=== PATIENT | male | born 1935 | race Caucasian/White ===

== ENCOUNTER 2019-11-24 10:48 | Observation (INO) | payer OTHER ==
[~2019-11-24] VITALS: Ht 172.7 cm; Wt 98.0 kg
[2019-11-24 10:57] VITALS: BP 163/87
[2019-11-24] MEDS ORDERED: ZYTIGA250 MG PO (11:30)
[2019-11-24] MEDS ORDERED: HYDROCHLOROTHIA25 M2 PO (11:31)
[2019-11-24] MEDS ORDERED: ENALAPRIL MALEA20 MG PO (11:31)
[2019-11-24] MEDS ORDERED: NOXIFOL-D32500 UNIT PO (11:31)
[2019-11-24] MEDS ORDERED: FLOMAX0.4 MG PO (11:32)
[2019-11-24] MEDS ORDERED: PREDNISOLONE 5 M5 M1 PO (11:32)
[2019-11-24] MEDS ORDERED: ASPIR 8181 M1 PO (11:33)
[2019-11-24] MEDS ORDERED: SIMVASTATIN80 MG PO (11:33)
[2019-11-24] MEDS ORDERED: LUPRON DEPOT-PE30 MG IM (11:34)
[2019-11-24 11:39] LABS: HEMATOCRIT 37.6 % (42.0-52.0); HEMOGLOBIN 13.3 gm/dL (14.0-18.0); MCH 33.8 pg (26.0-34.0); MCHC 35.4 g/dL (28.0-37.0); MCV 95.4 fL (80.0-100.0); MPV 6.2 fl. (7.2-11.1); NUCLEATED RBCS 0 /100WBC; PLATELET COUNT* 235 thou/uL (150-400); RBC 3.94 mil/uL (4.50-6.00); RDW-CV 14.8 % (10.5-14.5); WBC 7.6 thou/uL (4.0-11.0)
[2019-11-24 11:43] LABS: CALCIUM 9.4 mg/dL (8.5-10.1); CREATININE 1.5 mg/dL (0.6-1.3); POTASSIUM 3.9 mmol/L (3.5-5.1)
[2019-11-24 11:47] LABS: ALBUMIN 3.7 g/dL (3.4-5.0); TOTAL BILIRUBIN 1.2 mg/dL (<0.1-1.0); TOTAL PROTEIN 7.2 g/dL (6.4-8.2)
[2019-11-24 12:25] LABS: ABSOLUTE BASOPHILS 0.1 thou/uL (0.0-0.2); ABSOLUTE EOSINOPHILS 0.1 thou/uL (0.0-0.7); ABSOLUTE LYMPHOCYTES 2.8 thou/uL (0.8-5.3); ABSOLUTE MONOCYTES 0.1 thou/uL (0.0-1.2); ABSOLUTE NEUTROPHILS 4.6 thou/uL (1.6-8.1); METAMYELOCYTES 9 %; PLATELET ESTIMATE ADEQUATE
[2019-11-24 13:03] LABS: PROTIME 10.2 Seconds (9.20-11.50)
[2019-11-24 17:20] VITALS: BP 163/87
[2019-11-24 20:30] VITALS: BP 111/58
[2019-11-25] VITALS: BP 111/53
[2019-11-25 05:02] LABS: CALCIUM 8.5 mg/dL (8.5-10.1); CREATININE 1.7 mg/dL (0.6-1.3); MAGNESIUM 1.8 mg/dL (1.8-2.4); POTASSIUM 3.6 mmol/L (3.5-5.1)
[2019-11-25 08:00] VITALS: BP 137/70
[2019-11-25] MEDS ORDERED: ELIQUIS5 MG PO (10:40)
[2019-11-25] MEDS ORDERED: ELIQUIS2.5 MG PO (10:40)
[2019-11-25 11:30] VITALS: BP 121/69
[2019-11-25 13:00] LABS: HEMATOCRIT 36.2 % (42.0-52.0); HEMOGLOBIN 13.1 gm/dL (14.0-18.0)
[2019-11-25 13:08] VITALS: BP 137/70
== END 2019-11-25 14:25 | disposition home or self-care (01) ==
LOC: M.ERS 10:48 → M.TBA-ER 13:27 → M.2W 13:27
PROVIDERS: Emergency Medicine Emergency Medical Services; ADMIT Internal Medicine; ATTEND Internal Medicine
DX: I82.412 Acute embolism and thrombosis of left femoral vein (principal); E80.6 Other disorders of bilirubin metabolism; I10 Essential (primary) hypertension; C61 Malignant neoplasm of prostate; Z79.01 Long term (current) use of anticoagulants; M19.90 Unspecified osteoarthritis, unspecified site